=== PATIENT | female | born 1955 | race Caucasian/White ===

== ENCOUNTER 2020-09-03 16:52 | Emergency (ER) | payer MEDICARE, MEDICAID ==
[~2020-09-03] VITALS: Ht 167.6 cm; Wt 75.0 kg
[2020-09-03 16:55] VITALS: BP 122/58
[2020-09-03 17:13] LABS: BASO % 1 % (0-3); EOS # 0.3 x10^3/uL (0.0-0.7); EOS % 6 % (0-3); HEMATOCRIT 38.5 % (36.0-47.0); LYMPH # 2.3 x10^3/uL (1.0-4.8); LYMPH % 43 % (24-48); MEAN CORPUSCULAR HEMOGLOBIN 29 pg (25-35); MEAN CORPUSCULAR HGB CONC 34 g/dL (31-37); MEAN CORPUSCULAR VOLUME 86 fL (79-100); MONO # 0.4 x10^3/uL (0.0-1.1); MONO % 7 % (0-9); NEUT # 2.4 x10^3/uL (1.8-7.7); NEUT % 44 % (31-73); PLATELET COUNT 251 x10^3/uL (140-400); RED BLOOD COUNT 4.47 x10^6/uL (3.50-5.40); RED CELL DISTRIBUTION WIDTH 14.6 % (11.5-14.5); WHITE BLOOD COUNT 5.4 x10^3/uL (4.0-11.0)
--- NOTE | 2020-09-03 17:17 | RAD ---
CHEST AP ONLY Clinical History: Reason: chest pain / Spl. Instructions: / History: Technique: AP view of the chest was obtained at 09/03/2020 4:54 PM. Comparison: None. Findings: The cardiomediastinal silhouette is normal. The pulmonary vasculature is normal. The lungs and pleural margins are clear. Impression: No evidence of an acute cardiopulmonary process. Electronically signed by: John Rider III, MD (09/03/2020 5:14 PM) [facility]
[2020-09-03 17:21] LABS: CALCIUM 8.8 mg/dL (8.5-10.1); CREATININE 0.7 mg/dL (0.6-1.0); GFR 84.2; POTASSIUM 3.4 mmol/L (3.5-5.1)
[2020-09-03 17:22] LABS: PROTHROMBIN TIME PATIENT 12.2 SEC (11.7-14.0)
[2020-09-03 17:29] LABS: BILIRUBIN,URINE NEGATIVE (NEG); CLARITY,URINE CLEAR; COLOR,URINE YELLOW; NITRITE,URINE NEGATIVE (NEG); PH,URINE 5.5 (<5.0-8.0); PROTEIN,URINE NEGATIVE (NEG-TRACE); UROBILINOGEN,URINE 0.2 mg/dL (0.2 mg/dL)
[2020-09-03 17:30] LABS: ALBUMIN 4.2 g/dL (3.4-5.0); ALBUMIN/GLOBULIN RATIO 1.2 (1.0-1.7); MAGNESIUM 2.5 mg/dL (1.8-2.4); TOTAL BILIRUBIN 0.2 mg/dL (0.2-1.0); TOTAL PROTEIN 7.7 g/dL (6.4-8.2)
[2020-09-03 17:40] LABS: BACTERIA,URINE 0 /HPF (0-FEW); RBC,URINE 0 /HPF (0-2); WBC,URINE 0 /HPF (0-4)
--- NOTE | 2020-09-03 17:53 | PHYS DOC ---
General Adult EDM: Chief Complaint: CHEST PAIN HPI: HPI: Patient is a 65 year old female who presents to the emergency department via EMS from the [facility] after sudden onset of chest pain. Per EMS the patient was given 4 baby aspirin and 2 nitro and the chest pain resolved completely. Patient admitted to drinking 4 alcoholic beverages [place] [employer]. She denies any shortness of breath, diaphoresis, nausea, vomiting, abdominal pain, dizziness, or syncope with the onset of the chest pain. She denies any swelling of her extremities, cough, or congestion. She currently denies any pain. Review of Systems: Review of Systems: Constitutional: Denies fever or chills. [] Eyes: Denies change in visual acuity. [] HENT: Denies nasal congestion or sore throat. [] Respiratory: Denies cough or shortness of breath. [] Cardiovascular: See HPI GI: Denies abdominal pain, nausea, vomiting, or diarrhea. [] Musculoskeletal: Denies back pain or joint pain. [] Integument: Denies rash. [] Neurologic: Denies headache, focal weakness or sensory changes. [] Psychiatric: Denies depression or anxiety. [] Complete ROS is negative unless otherwise stated in the HPI. Heart Score: Risk Factors: Risk Factors: DM, Current or recent (<one month) smoker, HTN, HLP, family history of CAD, obesity. Risk Scores: Score 0 - 3: 2.5% MACE over next 6 weeks - Discharge Home Score 4 - 6: 20.3% MACE over next 6 weeks - Admit for Clinical Observation Score 7 - 10: 72.7% MACE over next 6 weeks - Early Invasive Strategies Allergies: Allergies: Allergies Coded Allergies Type Severity Reaction Last Updated Verified erythromycin base Allergy Unknown Rash 09/03/20 Yes tetracycline Allergy Unknown Rash 09/03/20 Yes Physical Exam: PE: Constitutional: Well developed, well nourished, no acute distress, appears intoxicated HENT: Normocephalic, atraumatic, bilateral external ears normal, nose normal. [] Eyes: PERRLA, EOMI, conjunctiva normal, no discharge. [] Neck: Normal range of motion, no stridor. [] Cardiovascular:Heart rate regular rhythm, no murmur [] Lungs & Thorax: Respirations even and unlabored, no retractions, no respiratory distress Skin: Warm, dry, no erythema, no rash. [] Extremities: No tenderness, no cyanosis, no clubbing, ROM intact, no edema. [] Neurologic: Alert and oriented X 3, normal motor function, normal sensory function, no focal deficits noted. [] Psychologic: Affect normal, judgement normal, mood normal. [] Current Patient Data: Labs: Laboratory Tests Test 09/03/20 17:00 09/03/20 17:10 White Blood Count 5.4 x10^3/uL (4.0-11.0) Red Blood Count 4.47 x10^6/uL (3.50-5.40) Hemoglobin 13.0 g/dL (12.0-15.5) Hematocrit 38.5 % (36.0-47.0) Mean Corpuscular Volume 86 fL (79-100) Mean Corpuscular Hemoglobin 29 pg (25-35) Mean Corpuscular Hemoglobin Concent 34 g/dL (31-37) Red Cell Distribution Width 14.6 % (11.5-14.5) H Platelet Count 251 x10^3/uL (140-400) Neutrophils (%) (Auto) 44 % (31-73) Lymphocytes (%) (Auto) 43 % (24-48) Monocytes (%) (Auto) 7 % (0-9) Eosinophils (%) (Auto) 6 % (0-3) H Basophils (%) (Auto) 1 % (0-3) Neutrophils # (Auto) 2.4 x10^3/uL (1.8-7.7) Lymphocytes # (Auto) 2.3 x10^3/uL (1.0-4.8) Monocytes # (Auto) 0.4 x10^3/uL (0.0-1.1) Eosinophils # (Auto) 0.3 x10^3/uL (0.0-0.7) Basophils # (Auto) 0.0 x10^3/uL (0.0-0.2) Prothrombin Time 12.2 SEC (11.7-14.0) Prothrombin Time INR 0.9 (0.8-1.1) Activated Partial Thromboplast Time 28 SEC (24-38) Sodium Level 143 mmol/L (136-145) Potassium Level 3.4 mmol/L (3.5-5.1) L Chloride Level 106 mmol/L (98-107) Carbon Dioxide Level 28 mmol/L (21-32) Anion Gap 9 (6-14) Blood Urea Nitrogen 9 mg/dL (7-20) Creatinine 0.7 mg/dL (0.6-1.0) Estimated GFR (Cockcroft-Gault) 84.2 BUN/Creatinine Ratio 13 (6-20) Glucose Level 99 mg/dL (70-99) Calcium Level 8.8 mg/dL (8.5-10.1) Magnesium Level 2.5 mg/dL (1.8-2.4) H Total Bilirubin 0.2 mg/dL (0.2-1.0) Aspartate Amino Transferase (AST) 49 U/L (15-37) H Alanine Aminotransferase (ALT) 38 U/L (14-59) Alkaline Phosphatase 81 U/L (46-116) Creatine Kinase 141 U/L (26-192) Creatine Kinase MB (Mass) 1.9 ng/mL (0.0-3.6) Creatine Kinase MB Relative Index 1.3 % (0-4) Troponin I Quantitative < 0.017 ng/mL (0.000-0.055) TB-Mvf-Q-Type Natriuretic Peptide 164 pg/mL (0-124) H Total Protein 7.7 g/dL (6.4-8.2) Albumin 4.2 g/dL (3.4-5.0) Albumin/Globulin Ratio 1.2 (1.0-1.7) Lipase 154 U/L (73-393) Urine Collection Type Void Urine Color Yellow Urine Clarity Clear Urine pH 5.5 (<5.0-8.0) Urine Specific Ewen <=1.005 (1.000-1.030) Urine Protein Negative mg/dL (NEG-TRACE) Urine Glucose (UA) Negative mg/dL (NEG) Urine Ketones (Stick) Negative mg/dL (NEG) Urine Blood Negative (NEG) Urine Nitrite Negative (NEG) Urine Bilirubin Negative (NEG) Urine Urobilinogen Dipstick 0.2 mg/dL (0.2 mg/dL) Urine Leukocyte Esterase Negative (NEG) Urine RBC 0 /HPF (0-2) Urine WBC 0 /HPF (0-4) Urine Bacteria 0 /HPF (0-FEW) Laboratory Tests 09/03/20 17:00 Laboratory Tests 09/03/20 17:00 EKG: EKG: [] Radiology/Procedures: Radiology/Procedures: [] Course & Med Decision Making: Course & Med Decision Making Pertinent Labs and Imaging studies reviewed. (See chart for details) 1740-I was notified by Bel CHAPMAN that the patient eloped from the ER. IV was found intact on the bed and patient was no where to be found in the department. [] Dragon Disclaimer: Dragon Disclaimer: This electronic medical record was generated, in whole or in part, using a voice recognition dictation system. Departure Departure Impression: Primary Impression: Eloped from emergency department Disposition: 07 AMA/ELOPED/LWBS Condition: LEFT WITHOUT BEING SEEN (eloped) Referrals: NO PCP (PCP) HALEY CONWAY SWITCHING CLERK Sep 03, 2020 17:53
--- NOTE | 2020-09-05 06:21 | EKG ---
[facility] [address] [place] [address] Test Date: 2020-09-03 Test Time: 16:56:58 Pat Name: VINICIUS MIR Department: Room: Gender: F Plastic Cutter: : 1955 Requested By: HALEY CONWAY Order Number: [id number] Reading MD: Measurements Intervals [place] Rate: 71 P: 49 OR: 144 QRS: 29 QRSD: 84 T: 31 QT: 404 QTc: 444 Interpretive Statements SINUS RHYTHM NORMAL ECG RI6.02 No previous ECG available for comparison
== END 2020-09-03 17:45 | disposition left against medical advice (07) ==
LOC: ER 16:52
DX: R07.89 Other chest pain (principal); Z88.1 Allergy status to other antibiotic agents
CPT/HCPCS: 36415; 71045; 80053; 81001; 82553; 83690; 83735; 83880; 84484; 85025; 85610; 85730; 93005; 99284; 99285